=== PATIENT | male | born 1990 | race Caucasian/White ===

== ENCOUNTER 2022-05-24 17:23 | Emergency (ER) | payer BC ==
[~2022-05-24] VITALS: Ht 182.9 cm; Wt 181.8 kg
[2022-05-24] MEDS ORDERED: ZESTRIL10 M1 PO (17:52)
[2022-05-24] MEDS ORDERED: ESTRADIOL0.1 MG/24 TD (17:52)
[2022-05-24] MEDS ORDERED: CEPHALEXIN500 M2 PO (19:10)
[2022-05-24 19:38] VITALS: BP 160/99
== END 2022-05-24 19:39 | disposition home or self-care (01) ==
LOC: ED 17:23
DX: S91.145A Puncture wound with foreign body of left lesser toe(s) without damage to nail, initial encounter (principal); L08.9 Local infection of the skin and subcutaneous tissue, unspecified; W27.3XXA Contact with needle (sewing), initial encounter

== ENCOUNTER 2024-08-02 16:06 | Emergency (ER) | payer OTHER ==
[~2024-08-02 16:06] MED LIST: CEPHALEXIN500 M2 PO; ESTRADIOL0.1 MG/24 TD; ZESTRIL10 M1 PO
[2024-08-02 16:45] LABS: BASO # 0.01 K/mm3 (0.02-0.10); EOS # 0.17 K/mm3 (0.04-0.40); EOS % 2.6 % (0.0-4.0); HEMATOCRIT 43.2 % (42.0-52.0); HEMOGLOBIN 14.8 g/dL (13.5-18.0); LYMPH# 1.62 K/mm3 (1.50-4.00); MEAN CELL VOLUME 81 fl (78-100); MEAN CORPUSCULAR HEMOGLOBIN 28 pg (27-31); MEAN CORPUSCULAR HGB CONC 34 g/dL (33-37); MEAN PLATELET VOLUME 10.1 fl (7.4-10.4); MONO # 0.44 K/mm3 (0.20-0.80); NEU # 4.21 K/mm3 (1.40-6.50); PLATELET COUNT 290 K/mm3 (130-400); RED BLOOD COUNT 5.34 M/mm3 (4.20-5.60); RED CELL DISTRIBUTION WIDTH 12.7 % (11.5-14.5); WHITE BLOOD COUNT 6.5 K/mm3 (4.8-10.8)
[2024-08-02 16:55] LABS: ALBUMIN 4.7 g/dL (3.5-5.0)
[2024-08-02 16:57] LABS: CALCIUM 9.7 mg/dL (8.3-10.5)
[2024-08-02 16:58] LABS: TOTAL PROTEIN 7.9 g/dL (6.4-8.3)
[2024-08-02 17:00] LABS: TOTAL BILIRUBIN 0.7 mg/dL (0.2-1.2)
[2024-08-02 17:07] LABS: URINE APPEARANCE CLEAR (CLEAR); URINE BILIRUBIN NEGATIVE (NEGATIVE); URINE BLOOD TRACE-INTACT (NEGATIVE); URINE COLOR YELLOW (YELLOW); URINE GLUCOSE NEGATIVE (NEGATIVE); URINE KETONE NEGATIVE (NEGATIVE); URINE LEUKOCYTE ESTERASE NEGATIVE (NEGATIVE); URINE NITRATE NEGATIVE (NEGATIVE); URINE PROTEIN(semi-quant) NEGATIVE (NEGATIVE); URINE WBC 0-1 /hpf (0-3)
[2024-08-02] MEDS ORDERED: Iohexol 300 - 100 ML VIAL IV ONE (18:00)
[2024-08-02 18:13] VITALS: BP 132/68
== END 2024-08-02 18:14 | disposition home or self-care (01) ==
LOC: ED 16:06
PROVIDERS: Family Medicine
DX: N48.89 Other specified disorders of penis (principal); R31.9 Hematuria, unspecified; E66.01 Morbid (severe) obesity due to excess calories
CPT/HCPCS: J7120; Q9967